=== PATIENT | female | born 1980 | race Caucasian/White ===

== ENCOUNTER 2017-11-15 11:18 | Emergency (ER) | payer OTHER ==
[~2017-11-15] VITALS: Ht 161.3 cm; Wt 86.2 kg
[2017-11-15] MEDS ORDERED: IPRATRPIUM/ALBUTEROL 0.5/2.5MG 3 ML NEBU. NEB ONE (11:30)
[2017-11-15 11:34] VITALS: BP 116/43
[2017-11-15 11:46] LABS: BASO # 0.1 x10^3/uL (0.0-0.2); BASO % 1 % (0-3); EOS # 0.3 x10^3/uL (0.0-0.7); EOS % 4 % (0-3); HEMOGLOBIN 14.6 g/dL (12.0-15.5); LYMPH # 1.9 x10^3/uL (1.0-4.8); LYMPH % 26 % (24-48); MEAN CORPUSCULAR HEMOGLOBIN 31 pg (25-35); MEAN CORPUSCULAR HGB CONC 36 g/dL (31-37); MEAN CORPUSCULAR VOLUME 86 fL (79-100); MONO # 0.9 x10^3/uL (0.0-1.1); MONO % 12 % (0-9); NEUT # 4.2 x10^3uL (1.8-7.7); NEUT % 58 % (31-73); PLATELET COUNT 205 x10^3/uL (140-400); RED BLOOD COUNT 4.77 x10^6/uL (3.50-5.40); WHITE BLOOD COUNT 7.3 x10^3/uL (4.0-11.0)
[2017-11-15 11:53] LABS: CALCIUM 9.1 mg/dL (8.5-10.1); GFR 62.4; POTASSIUM 3.8 mmol/L (3.5-5.1)
--- NOTE | 2017-11-15 11:55 | ED.ADGEN ---
Past History Past Medical History: No Pertinent History Past Surgical History: Cholecystectomy, , Hysterectomy Alcohol Use: None Drug Use: None Adult General HPI HPI Patient is a 37 year old female who presents with intermittent chest heaviness. The patient does not have a history of asthma. She complains that she has been generally ill over the last month. She has had a cough and some heaviness in her chest. She has felt short of breath intermittently. She has had some chills. No vomiting. No abdominal pain. Overall, constitutional symptoms without prolonged focal complaints. She has also had some intermittent waxing/ waning lymphadenopathy/lymphadenitis about the torso. Review of Systems Review of Systems Constitutional: not feeling well, chills Eyes: Denies change in visual acuity HENT: congestion Respiratory: cough and dyspnea Cardiovascular: No additional information GI: Denies abdominal pain, nausea, vomiting : Denies dysuria or hematuria Musculoskeletal: Denies back pain Integument: Denies rash or skin lesions Neurologic: Denies headache All other systems were reviewed and found to be within normal limits, except as documented in this note. Current Medications Current Medications Current Medications Medications (Trade) Dose Ordered Sig/Mitchell Start Time Stop Time Status Last Admin Dose Admin Albuterol/ Ipratropium (Duoneb) 3 ml 1X ONCE 11/15/17 11:30 11/15/17 11:40 DC 11/15/17 11:40 3 ML Iohexol (Omnipaque 300 Mg/ml) 75 ml 1X ONCE 11/15/17 12:45 11/15/17 12:46 DC 11/15/17 12:43 75 ML Sodium Chloride 1,000 ml @ 1,000 mls/hr 1X ONCE 11/15/17 12:15 11/15/17 13:14 DC Allergies Allergies Allergies Coded Allergies Type Severity Reaction Last Updated Verified Penicillins Allergy Unknown 11/15/17 Yes Physical Exam Physical Exam Constitutional: Well developed, well nourished, no acute distress, non-toxic appearance HENT: Normocephalic, atraumatic, bilateral external ears normal, oropharynx moist Eyes: PERRLA, EOMI, conjunctiva normal Neck: Normal range of motion, no tenderness Cardiovascular:Heart rate regular rhythm, no murmur Lungs & Thorax: Bilateral breath sounds clear to auscultation Skin: Warm, dry, no erythema Back: No tenderness Extremities: No edema Neurologic: Alert and oriented X 3 Psychologic: Affect normal Current Patient Data Vital Signs Vital Signs Date Time Temp Pulse Resp B/P (MAP) Pulse Ox O2 Delivery O2 Flow Rate FiO2 11/15/17 11:34 98.2 89 20 100 Room Air 11/15/17 11:25 116/43 (67) Lab Results Laboratory Tests Test 11/15/17 11:25 11/15/17 11:56 White Blood Count 7.3 x10^3/uL (4.0-11.0) Red Blood Count 4.77 x10^6/uL (3.50-5.40) Hemoglobin 14.6 g/dL (12.0-15.5) Hematocrit 41.0 % (36.0-47.0) Mean Corpuscular Volume 86 fL (79-100) Mean Corpuscular Hemoglobin 31 pg (25-35) Mean Corpuscular Hemoglobin Concent 36 g/dL (31-37) Red Cell Distribution Width 13.0 % (11.5-14.5) Platelet Count 205 x10^3/uL (140-400) Neutrophils (%) (Auto) 58 % (31-73) Lymphocytes (%) (Auto) 26 % (24-48) Monocytes (%) (Auto) 12 % (0-9) H Eosinophils (%) (Auto) 4 % (0-3) H Basophils (%) (Auto) 1 % (0-3) Neutrophils # (Auto) 4.2 x10^3uL (1.8-7.7) Lymphocytes # (Auto) 1.9 x10^3/uL (1.0-4.8) Monocytes # (Auto) 0.9 x10^3/uL (0.0-1.1) Eosinophils # (Auto) 0.3 x10^3/uL (0.0-0.7) Basophils # (Auto) 0.1 x10^3/uL (0.0-0.2) D-Dimer (Debby) 0.70 mg/L (0.00-0.50) H Sodium Level 138 mmol/L (136-145) Potassium Level 3.8 mmol/L (3.5-5.1) Chloride Level 104 mmol/L (98-107) Carbon Dioxide Level 26 mmol/L (21-32) Anion Gap 8 (6-14) Blood Urea Nitrogen 9 mg/dL (7-20) Creatinine 1.0 mg/dL (0.6-1.0) Estimated GFR (Cockcroft-Gault) 62.4 Glucose Level 90 mg/dL (70-99) Calcium Level 9.1 mg/dL (8.5-10.1) Troponin I Quantitative < 0.017 ng/mL (0-0.055) Urine Collection Type Unknown Urine Color Straw Urine Clarity Hazy Urine pH 7.0 Urine Specific [place] 1.020 Urine Protein Neg (NEG-TRACE) Urine Glucose (UA) Neg mg/dL (NEG) Urine Ketones (Stick) Neg mg/dL (NEG) Urine Blood Trace (NEG) Urine Nitrite Neg (NEG) Urine Bilirubin Neg (NEG) Urine Urobilinogen Dipstick 0.2 mg/dL (0.2 mg/dL) Urine Leukocyte Esterase Neg (NEG) Urine RBC Occ /HPF (0-2) Urine WBC Occ /HPF (0-4) Urine Squamous Epithelial Cells Few /LPF Urine Bacteria Few /HPF (0-FEW) EKG EKG No STEMI Radiology/Procedures Radiology/Procedures CTA Chest: FINDINGS: Pulmonary arteries:No evidence of pulmonary embolism. Thoracic aorta: No evidence of aortic aneurysm or dissection. Thyroid gland: Irregular low-density nodule in the right lobe, measures 14 mm long axis. Heart: No significant pericadial effusion. Esophagus: Unremarkable Pleural spaces: No significant effusion Lungs: There is abnormal soft tissue lesion in the right upper lobe medially, abutting the trachea and extending into the right upper hilum. This extends superiorly to the lung apex. Measures 6.7 cm cephalocaudal by 3.1 cm wide by 3.0 cm AP. Innumerable small ill-defined pulmonary nodules are clustered in the more peripheral right upper lobe, largest measures 9 mm. Lymph nodes: No significant axillary or mediastinal lymph node enlargement. The above-described mass is difficult to distinguish from the right upper hilum. No significant left hilar lymph node enlargement. Trachea and central airways: Patent Bones: Degenerative changes of the spine. No destructive bone lesion. Upper abdomen: Slices through the upper abdomen are limited due to the technique .No obvious acute findings. IMPRESSION: 1. Abnormal soft tissue opacity in the right upper lobe medially with numerous small more peripheral pulmonary nodules. This is concerning for a malignant tumor. Recommend appropriate workup, such as PET/CT scan or tissue sampling. 2. No evidence of pulmonary embolism are other acute abnormality. CXR: HISTORY: Shortness of breath The heart size and pulmonary vascularity are normal. No pulmonary infiltrate is seen. There is no evidence of pleural fluid. IMPRESSION: No acute cardiopulmonary abnormality is detected. Course & Med Decision Making Course & Med Decision Making Pertinent Labs and Imaging studies reviewed. (See chart for details) Patient is seen and examined immediately on arrival to her room. C/o chest heaviness and some cough. PE is negative for acute findings although she does have wheezes when coughing during auscultation of the lungs. Unclear cause for her symptoms. Will check basic labs to include dimer. 12:20: dimer elevated. Work-up otherwise negative. CTA chest ordered. 13:30: Notified by radiologist and CT findings. Mass in the right upper chest is concerning for malignancy although this would need confirmed with further testing. The patient does have some history of cancer in her family. Her father had pancreatic cancer. Patient does not smoke or use other tobacco products. Her presentation to the ER was vague in nature and she had apparently constitutional type symptoms. Her CBC does not reveal acute findings. She did have a mildly elevated d-dimer so CT was done. CT was revealing as above. The patient is visiting and will be returning to her home town in one week. We did discuss together the importance of very close follow-up regarding the CT findings and the patient will pursue this upon return to her hometown. She will return to this emergency room in the next week if she has a new or acute symptoms that are concerning. Final Impression Final Impression Mass in right lung and chest Finesse Disclaimer Finesse Disclaimer This electronic medical record was generated, in whole or in part, using a voice recognition dictation system. KHANH PAN DO Nov 15, 2017 11:55
--- NOTE | 2017-11-15 12:11 | RAD ---
Chest, 2 views, 11/15/2017: HISTORY: Shortness of breath The heart size and pulmonary vascularity are normal. No pulmonary infiltrate is seen. There is no evidence of pleural fluid. IMPRESSION: No acute cardiopulmonary abnormality is detected. Electronically signed by: Maximus Corcoran MD (11/15/2017 12:07 PM) [facility]
[2017-11-15] MEDS ORDERED: IV NORMAL SALINE 1,000ML 1,000 ML IV ONE (12:15)
[2017-11-15 12:23] LABS: BACTERIA,URINE FEW /HPF (0-FEW); BILIRUBIN,URINE NEG (NEG); CLARITY,URINE HAZY; COLOR,URINE STRAW; GLUCOSE,URINE NEG (NEG); NITRITE,URINE NEG (NEG); RBC,URINE OCC /HPF (0-2); SQUAMOUS EPITHELIAL CELL,UR FEW /LPF; UROBILINOGEN,URINE 0.2 mg/dL (0.2 mg/dL); WBC,URINE OCC /HPF (0-4)
--- NOTE | 2017-11-15 12:27 | EKG ---
[address] [address] Test Date: 2017-11-15 Test Time: 11:37:28 Pat Name: SPIKE PORTILLO Department: Room: Gender: F Plastic Top [employer]er: : 1980 Requested By: KHANH PAN Order Number: [id number] Reading MD: Measurements Intervals [place] Rate: 89 P: 0 KS: 108 QRS: 20 QRSD: 84 T: 6 QT: 332 QTc: 410 Interpretive Statements SINUS RHYTHM QRS(T) CONTOUR ABNORMALITY CONSIDER ANTEROLATERAL MYOCARDIAL DAMAGE POSSIBLY ABNORMAL ECG RI6.01 Unconfirmed report No previous ECG available for comparison
[2017-11-15] MEDS ORDERED: IOHEXOL 300 MG/ML 75 ML VIAL. IV ONE (12:45)
--- NOTE | 2017-11-15 13:16 | RAD ---
CTA chest with contrast Indication: SHORT OF BREATH, ELEVATED D DIMER . Comparison: No comparison is available. Technique: After intravenous contrast administration, CT imaging was performed of the chest. MIP reconstructions were obtained. Exposure: One or more of the following individualized dose reduction techniques were utilized for this examination: 1. Automated exposure control 2. Adjustment of the mA and/or kV according to patient size 3. Use of iterative reconstruction technique. FINDINGS: Pulmonary arteries:No evidence of pulmonary embolism. Thoracic aorta: No evidence of aortic aneurysm or dissection. Thyroid gland: Irregular low-density nodule in the right lobe, measures 14 mm long axis. Heart: No significant pericadial effusion. Esophagus: Unremarkable Pleural spaces: No significant effusion Lungs: There is abnormal soft tissue lesion in the right upper lobe medially, abutting the trachea and extending into the right upper hilum. This extends superiorly to the lung apex. Measures 6.7 cm cephalocaudal by 3.1 cm wide by 3.0 cm AP. Innumerable small ill-defined pulmonary nodules are clustered in the more peripheral right upper lobe, largest measures 9 mm. Lymph nodes: No significant axillary or mediastinal lymph node enlargement. The above-described mass is difficult to distinguish from the right upper hilum. No significant left hilar lymph node enlargement. Trachea and central airways: Patent Bones: Degenerative changes of the spine. No destructive bone lesion. Upper abdomen: Slices through the upper abdomen are limited due to the technique .No obvious acute findings. IMPRESSION: 1. Abnormal soft tissue opacity in the right upper lobe medially with numerous small more peripheral pulmonary nodules. This is concerning for a malignant tumor. Recommend appropriate workup, such as PET/CT scan or tissue sampling. 2. No evidence of pulmonary embolism are other acute abnormality. FOR INTERNAL CODING PURPOSES Critical result: Findings discussed with Dr. Benton in the ER at 11/15/2017 1:09 PM. RESULT CODE: (C) Electronically signed by: Abdulaziz Díaz MD (11/15/2017 1:13 PM) [id number]
== END 2017-11-15 14:46 | disposition home or self-care (01) ==
LOC: ER 11:18
DX: R22.2 Localized swelling, mass and lump, trunk (principal); R79.1 Abnormal coagulation profile; Z88.0 Allergy status to penicillin
CPT/HCPCS: 36415; 71046; 71275; 80048; 81001; 84484; 85025; 85379; 93005; 94640; 99285; J7620; Q9967